=== PATIENT | female | born 1940 | race Caucasian/White ===

== ENCOUNTER → 2016-07-28 | Outpatient (CLI) | payer MEDICARE, OTHER ==
[~2016-07-28] MED LIST: ASPIRIN81 M2 PO; DHEA 10 MG TAB1 EACH PO; LIDOCAINE; LIOTHYRONINE SO5 MC1 PO; LIPITOR20 MG PO; SUPER B COMPLEX1 CAP PO; VITAMIN D 3; [UNRECOGNIZED DRUG - OTHER]
--- NOTE | ~2016-07-28 | US37 ---
[facility] A Service of [facility] & [facility] RADIOLOGY TEXT RESULTS PATIENT: GENO SERRATO LOCATION: CNIV : 42 UNIT #: [id number] AGE: [address]: Tavia Shipley MD SEX: F ORDER DR: [id number] [facility] [address] [place], [place] [address] [id number] O MR#: [id number] Acc #: [id number] NAME: GENO SERRATO : 1940 SEX: F STUDY DATE/TIME: 07/28/2016 9:25 UNIT: CNIV ROOM: STUDY DESCRIPTION: US Carotid W/Doppler Bilateral Attending Physician: Tavia Shipley M.D. Referring Physician: Tavia Shipley M.D. Ordering Physician: Tavia Shipley M.D. Primary Care Physician: Maurizio AguilaPSujey MEDICAL IMAGING REPORT This report is preliminary unless electronic signature is present EXAM Bilateral carotid Doppler HISTORY Carotid stenosis. FINDINGS The right common carotid, internal carotid and external carotid arteries are patent with diffuse mild plaque throughout, especially at the carotid bulb and internal carotid artery. Velocity at the common carotid artery is 105 cm/sec. Peak systolic velocity of the right proximal internal carotid artery is 83 cm/sec with an end-diastolic velocity of 19 cm/sec for a ICA:CCA ratio of 0.8. External carotid artery had a velocity of 97 cm/sec. The vertebral artery is visualized with antegrade flow. The left common carotid, internal carotid and external carotid arteries are patent with mild plaque noted at the common carotid artery and minimal plaque at the internal carotid artery. Velocity of the common carotid artery is 104 cm/sec. Peak systolic velocity left proximal internal carotid artery is 85 cm/sec with an end-diastolic velocity of 25 cm/sec for a ICA:CCA ratio of 0.8. External carotid artery had a velocity of 108 cm/sec. The vertebral artery is visualized with antegrade flow. IMPRESSION 1. Less than 50% stenosis of the right and left internal carotid arteries. 2. No stenosis of the external carotid arteries. 3. Antegrade flow of the vertebral arteries. Dictated by... [facility] A Service of [facility] & [facility] RADIOLOGY TEXT RESULTS PATIENT: GENO SERRATO LOCATION: CN : 42 UNIT #: [id number] AGE: [address]: Tavia Shipley MD SEX: F ORDER DR: Tavia Shipley M.D. THIS IS AN ELECTRONICALLY VERIFIED REPORT Tavia Shipley M.D. at 07/31/2016 10:10 AM Andie TD: 07/28/2016 22:29 JOB #: [id number] MEDICAL IMAGING REPORT Page 1 of 1 COPY
--- NOTE | ~2016-07-28 | US10 ---
[id number] [facility] [address] [place], [place] [address] [id number] O MR#: [id number] Acc #: [id number] NAME: GENO SERRATO : 1940 SEX: F STUDY DATE/TIME: 07/28/2016 9:14 UNIT: CNIV ROOM: STUDY DESCRIPTION: US Aorta Complete Attending Physician: Tavia Shipley M.D. Referring Physician: Tavia Shipley M.D. Ordering Physician: Tavia Shipley M.D. Primary Care Physician: Maurizio AguilaPNeliRJosefa MEDICAL IMAGING REPORT This report is preliminary unless electronic signature is present EXAM Abdominal aortic ultrasound HISTORY Aortic aneurysm. FINDINGS B-mode imaging and color Doppler imaging of the infrarenal aorta is performed demonstrating widely patent vessel throughout without evidence of significant stenosis or occlusion. Velocity within the aorta was 46 cm/sec. The proximal infrarenal aorta is 1.9 cm, mid aorta 1.6 cm, and distal aorta 2.8 cm. The right and left iliac arteries are patent with the right measuring 0.7 cm and the left 0.6 cm. IMPRESSION Ectatic distal aortic enlargement measuring 2.8 cm in diameter but no evidence of iliac artery ectasia or aneurysm. Dictated by... Tavia Shipley M.D. THIS IS AN ELECTRONICALLY VERIFIED REPORT Tavia Shipley M.D. at 07/31/2016 10:10 AM Andie TD: 07/28/2016 22:24 JOB #: [id number] MEDICAL IMAGING REPORT Page 1 of 1 COPY
== END | disposition home or self-care (01) ==
LOC: CNIV 08:48
DX: I65.29 Occlusion and stenosis of unspecified carotid artery (principal); I71.4 Abdominal aortic aneurysm, without rupture; I65.23 Occlusion and stenosis of bilateral carotid arteries; I77.811 Abdominal aortic ectasia
CPT/HCPCS: 76770; 93880